=== PATIENT | male | born 1990 | race Two or more races ===

== ENCOUNTER → 2016-10-17 | Outpatient (CLI) | payer OTHER ==
[~2016-10-17] MED LIST: IBUP-1114 PO
--- NOTE | 2016-10-17 16:59 | REP ---
Clinical: Right foot pain Technique: AP, lateral, bilateral oblique views right foot . Findings: The osseous structures and joint spaces are intact and normal. There is no evidence for acute fracture or dislocation. Surrounding soft tissues are unremarkable. No subcutaneous emphysema or radiodense foreign body. Impression: Normal right foot radiographs. No acute fracture or dislocation. Signed by Morro Johnston MD 10/17/2016 04:50 P
== END ==
LOC: M LRY 16:35
PROVIDERS: ATTEND Physician Assistant
DX: M79.671 Pain in right foot (principal)
CPT/HCPCS: 73630; G0463